=== PATIENT | male | born 1990 | race Caucasian/White ===

== ENCOUNTER 2024-12-28 17:01 | Emergency (ER) | payer OTHER ==
[~2024-12-28] VITALS: Ht 172.7 cm; Wt 65.8 kg
[2024-12-28 17:06] VITALS: BP 133/86
[2024-12-28] MEDS ORDERED: AMOX500 PO (17:11)
== END 2024-12-28 17:14 | disposition home or self-care (01) ==
LOC: ER 17:01
DX: K04.7 Periapical abscess without sinus (principal)
CPT/HCPCS: 99282